=== PATIENT | male | born 1960 | race Caucasian/White ===

== ENCOUNTER 2018-09-03 10:42 | Outpatient (CLI) | payer MEDICARE ==
--- NOTE | 2018-09-03 12:52 | CT ---
CT BRAIN: HISTORY: Patient with subdural hematoma, drain removal. FINDINGS: Noncontrast-enhanced CT images of the brain were obtained on 09/03/2018. Comparison is made to previ ous exam from 08/08/2018. Noncontrast-enhanced CT brain demonstrates extensive right hemispheric encephalomalacic changes. Pre viously noted [id number] shift has resolved. No evidence of significant subdural hematoma seen. 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 IMPRESSION: Extensive right hemispheric atrophy. No acute intracranial abnormality is seen. There has been reso lution of previously noted [id number] shift seen on previous CT from July of 2010. Unfortuna tely, more recent CT image is not available. POS: [facility]
== END 2018-09-03 10:43 | disposition home or self-care (01) ==
LOC: TBSIIMAG 10:42
PROVIDERS: ATTEND Neurological Surgery
DX: S06.5X0A Traumatic subdural hemorrhage without loss of consciousness, initial encounter (principal); G31.9 Degenerative disease of nervous system, unspecified
CPT/HCPCS: 70450